=== PATIENT | male | born 1955 | race Caucasian/White ===

== ENCOUNTER 2025-04-26 16:09 | Inpatient (IN) | payer MEDICARE ==
[~2025-04-26] VITALS: Ht 177.8 cm; Wt 91.2 kg
[2025-04-26 18:30] VITALS: BP 106/77; PULSE 61; RESP 18; TEMP 98.1; O2SAT 96
[2025-04-26 18:35] VITALS: BP 118/76; PULSE 66; RESP 18; TEMP 98.1; O2SAT 96
[2025-04-26] MEDS ORDERED: ONDANSETRON 4 MG TABLET PO PRN (19:00)
[2025-04-26] MEDS ORDERED: DEXTROSE 50%-WATER 25 GM/50 ML SYRINGE IVP PRN (19:45)
[2025-04-26 20:44] VITALS: BP 110/77; PULSE 80; RESP 18; TEMP 97.9; O2SAT 95
[2025-04-26] MEDS: -LIDODERM PATCH NOTE- MISC SCH (21:00)
[2025-04-26] MEDS: MELATONIN 5 MG TABLET PO PRN (21:08)
[2025-04-26] MEDS: DOCUSATE SODIUM 250 MG CAPSULE PO SCH (21:08)
[2025-04-26] MEDS: HEPARIN SODIUM,PORCINE 5,000 UNITS/ML VIAL SQ SCH (21:08)
[2025-04-26] MEDS: ETHYL ALCOHOL 62% ANTISEPTIC NASAL SANITIZER 0.6 ML AMPUL NASAL SCH (21:08)
[2025-04-26] MEDS: SENNOSIDES 8.6 MG TABLET PO SCH (21:08)
[2025-04-26 21:51] VITALS: O2SAT 95
[2025-04-27 00:21] LABS: GLUCOMETER DEV NAME(LOC) 2WR.1D; GLUCOSE,POINT OF CARE 132 MG/DL (70-110)
[2025-04-27] MEDS: LANSOPRAZOLE 30 MG CAPSULE PO SCH (06:28)
[2025-04-27] MEDS: HEPARIN SODIUM,PORCINE 5,000 UNITS/ML VIAL SQ SCH (06:29)
[2025-04-27 06:36] LABS: GLUCOMETER DEV NAME(LOC) 2WR.2C; GLUCOSE,POINT OF CARE 141 MG/DL (70-110)
[2025-04-27 07:07] LABS: PLATELET COUNT (AUTO) 378 K/uL (150-450); RED BLOOD CELL COUNT(AUTO) 4.40 MIL/uL (4.50-5.90); RED CELL DISTRIBUTION WIDTH 13.7 % (11.5-14.5); WHITE BLOOD COUNT (AUTO) 14.5 K/uL (4.5-11.0)
[2025-04-27 07:31] LABS: ASPARTATE AMINOTRANSFERASE 17 U/L (15-37); CALCIUM, TOTAL 8.7 mg/dL (8.8-10.5); CREATININE 0.77 mg/dL (0.60-1.30); GLOMERULAR FILTR. RATE CALC > 60 mL/min (>60); GLUCOSE,RANDOM 131 mg/dL (70-110); SODIUM SERUM 134 mmol/L (136-145); TOTAL PROTEIN, SERUM 7.1 g/dL (6.4-8.2); UREA NITROGEN, BLOOD 22 mg/dL (7-18)
[2025-04-27 08:00] VITALS: BP 109/79; PULSE 67; RESP 18; TEMP 97.8; O2SAT 97
[2025-04-27] MEDS: LIDOCAINE 5% TRANSDERMAL PATCH TD SCH (08:32)
[2025-04-27] MEDS: BENZONATATE 100 MG CAPSULE PO PRN (08:32)
[2025-04-27] MEDS: INSULIN LISPRO 100 UNITS/ML SQ PRN (08:35)
[2025-04-27 11:58] VITALS: PULSE 68; RESP 18; O2SAT 95
[2025-04-27 12:56] LABS: GLUCOMETER DEV NAME(LOC) 2WR.2C; GLUCOSE,POINT OF CARE 136 MG/DL (70-110)
[2025-04-27 17:35] LABS: GLUCOMETER DEV NAME(LOC) 2WR.2C; GLUCOSE,POINT OF CARE 128 MG/DL (70-110)
[2025-04-27 20:00] VITALS: BP 110/81; PULSE 75; RESP 18; TEMP 98.2; O2SAT 96
[2025-04-27 22:15] LABS: GLUCOMETER DEV NAME(LOC) 2WR.2C; GLUCOSE,POINT OF CARE 157 MG/DL (70-110)
[2025-04-28 06:51] LABS: GLUCOMETER DEV NAME(LOC) 2WR.2C; GLUCOSE,POINT OF CARE 150 MG/DL (70-110)
[2025-04-28 08:00] VITALS: BP 112/72; PULSE 67; RESP 18; TEMP 97.8; O2SAT 98
[2025-04-28 12:50] LABS: GLUCOMETER DEV NAME(LOC) 2WR.2C; GLUCOSE,POINT OF CARE 132 MG/DL (70-110)
[2025-04-28 17:11] LABS: GLUCOMETER DEV NAME(LOC) 2WR.2C; GLUCOSE,POINT OF CARE 115 MG/DL (70-110)
[2025-04-28 20:00] VITALS: BP 102/81; PULSE 74; RESP 18; TEMP 98.8; O2SAT 97
[2025-04-28 21:10] LABS: GLUCOMETER DEV NAME(LOC) 2WR.2C; GLUCOSE,POINT OF CARE 156 MG/DL (70-110)
[2025-04-28] MEDS: SENNOSIDES 8.6 MG TABLET PO SCH (21:46)
[2025-04-29 06:41] LABS: GLUCOMETER DEV NAME(LOC) 2WR.1D; GLUCOSE,POINT OF CARE 124 MG/DL (70-110)
[2025-04-29 08:00] VITALS: BP 104/79; PULSE 78; RESP 17; TEMP 98.2; O2SAT 95
[2025-04-29 11:51] LABS: GLUCOMETER DEV NAME(LOC) 2WR.1D; GLUCOSE,POINT OF CARE 141 MG/DL (70-110)
[2025-04-29 17:10] LABS: GLUCOMETER DEV NAME(LOC) 2WR.1D; GLUCOSE,POINT OF CARE 111 MG/DL (70-110)
[2025-04-29 20:00] VITALS: BP 101/75; PULSE 73; RESP 18; TEMP 97.9; O2SAT 98
[2025-04-29 20:51] LABS: GLUCOMETER DEV NAME(LOC) 2WR.1D; GLUCOSE,POINT OF CARE 132 MG/DL (70-110)
[2025-04-30 06:50] LABS: GLUCOMETER DEV NAME(LOC) 2WR.2C; GLUCOSE,POINT OF CARE 127 MG/DL (70-110)
[2025-04-30 08:09] VITALS: BP 103/78; PULSE 75; RESP 18; TEMP 98.6; O2SAT 98
[2025-04-30 11:56] LABS: GLUCOMETER DEV NAME(LOC) 2WR.2C; GLUCOSE,POINT OF CARE 145 MG/DL (70-110)
[2025-04-30 16:35] LABS: GLUCOMETER DEV NAME(LOC) 2WR.2C; GLUCOSE,POINT OF CARE 143 MG/DL (70-110)
[2025-04-30 19:51] VITALS: BP 113/80; PULSE 74; RESP 18; TEMP 98.1; O2SAT 97
[2025-04-30 22:51] LABS: GLUCOMETER DEV NAME(LOC) 2WR.2C; GLUCOSE,POINT OF CARE 117 MG/DL (70-110)
[2025-05-01 06:57] VITALS: O2SAT 97
[2025-05-01 07:11] LABS: PLATELET COUNT (AUTO) 388 K/uL (150-450); RED BLOOD CELL COUNT(AUTO) 4.68 MIL/uL (4.50-5.90); RED CELL DISTRIBUTION WIDTH 13.9 % (11.5-14.5); WHITE BLOOD COUNT (AUTO) 14.3 K/uL (4.5-11.0)
[2025-05-01 07:30] LABS: CREATININE 1.06 mg/dL (0.60-1.30); GLOMERULAR FILTR. RATE CALC > 60 mL/min (>60); GLUCOSE,RANDOM 124 mg/dL (70-110); SODIUM SERUM 135 mmol/L (136-145); UREA NITROGEN, BLOOD 19 mg/dL (7-18)
[2025-05-01 07:46] LABS: GLUCOMETER DEV NAME(LOC) 2WR.1D; GLUCOSE,POINT OF CARE 126 MG/DL (70-110)
[2025-05-01 07:50] LABS: CALCIUM, TOTAL 9.1 mg/dL (8.8-10.5)
[2025-05-01 08:00] VITALS: BP 98/64; PULSE 80; RESP 18; TEMP 98.2; O2SAT 100
[2025-05-01] MEDS: MECLIZINE HCL 25 MG TABLET PO SCH (12:24)
[2025-05-01 12:56] LABS: GLUCOMETER DEV NAME(LOC) 2WR.1D; GLUCOSE,POINT OF CARE 139 MG/DL (70-110)
[2025-05-01 17:20] LABS: GLUCOMETER DEV NAME(LOC) 2WR.1D; GLUCOSE,POINT OF CARE 115 MG/DL (70-110)
[2025-05-01] MEDS: ACETAMINOPHEN 325 MG TABLET PO PRN (18:53)
[2025-05-01 20:02] VITALS: BP 99/61; PULSE 72; RESP 18; TEMP 98.4; O2SAT 98
[2025-05-01 21:25] LABS: GLUCOMETER DEV NAME(LOC) 2WR.1D; GLUCOSE,POINT OF CARE 131 MG/DL (70-110)
[2025-05-01 22:26] VITALS: O2SAT 98
[2025-05-02 07:10] LABS: GLUCOMETER DEV NAME(LOC) 2WR.2C; GLUCOSE,POINT OF CARE 154 MG/DL (70-110)
[2025-05-02 08:40] VITALS: BP 106/79; PULSE 92; RESP 18; TEMP 98.1; O2SAT 99
[2025-05-02 10:50] VITALS: O2SAT 99
[2025-05-02 12:46] LABS: GLUCOMETER DEV NAME(LOC) 2WR.2C; GLUCOSE,POINT OF CARE 157 MG/DL (70-110)
[2025-05-02 17:01] LABS: GLUCOMETER DEV NAME(LOC) 2WR.2C; GLUCOSE,POINT OF CARE 132 MG/DL (70-110)
[2025-05-02 17:20] VITALS: BP 101/68; PULSE 83; RESP 18; TEMP 99.5; O2SAT 97
[2025-05-02 18:54] VITALS: TEMP 98.6
[2025-05-02 20:00] VITALS: BP 108/77; PULSE 84; RESP 18; TEMP 99.1; O2SAT 96
[2025-05-02 20:46] LABS: GLUCOMETER DEV NAME(LOC) 2WR.2C; GLUCOSE,POINT OF CARE 143 MG/DL (70-110)
[2025-05-02 22:00] VITALS: BP 104/80; PULSE 88; RESP 18; TEMP 98.8; O2SAT 98
[2025-05-03] VITALS (13 sets, daily range): BP systolic 94–120; BP diastolic 71–88; PULSE 61–94; RESP 18; TEMP 98.1–98.9; O2SAT 95–98
[2025-05-03] MEDS: OxyCODONE HCL 5 MG IR TABLET PO PRN (00:04)
[2025-05-03 06:21] LABS: GLUCOMETER DEV NAME(LOC) 2WR.2C; GLUCOSE,POINT OF CARE 142 MG/DL (70-110)
[2025-05-03] MEDS: SODIUM CHLORIDE 0.9% 500 ML IV ONE (09:53)
[2025-05-03 10:24] LABS: PLATELET COUNT (AUTO) 313 K/uL (150-450); RED BLOOD CELL COUNT(AUTO) 4.38 MIL/uL (4.50-5.90); RED CELL DISTRIBUTION WIDTH 14.0 % (11.5-14.5); WHITE BLOOD COUNT (AUTO) 13.8 K/uL (4.5-11.0)
[2025-05-03] MEDS ORDERED: MECLIZINE HCL 25 MG TABLET PO PRN (12:00)
[2025-05-03 12:46] LABS: GLUCOMETER DEV NAME(LOC) 2WR.2C; GLUCOSE,POINT OF CARE 129 MG/DL (70-110)
[2025-05-03 16:55] LABS: GLUCOMETER DEV NAME(LOC) 2WR.1D; GLUCOSE,POINT OF CARE 213 MG/DL (70-110)
[2025-05-03 22:11] LABS: GLUCOMETER DEV NAME(LOC) 2WR.1D; GLUCOSE,POINT OF CARE 151 MG/DL (70-110)
[2025-05-04] VITALS (9 sets, daily range): BP systolic 106–131; BP diastolic 70–89; PULSE 70–97; RESP 8–19; TEMP 97.2–98.8; O2SAT 95–100
[2025-05-04 07:53] LABS: GLUCOMETER DEV NAME(LOC) 2WR.2C; GLUCOSE,POINT OF CARE 138 MG/DL (70-110)
[2025-05-04 10:11] LABS: CALCIUM, TOTAL 8.7 mg/dL (8.8-10.5); CREATININE 1.01 mg/dL (0.60-1.30); GLOMERULAR FILTR. RATE CALC > 60 mL/min (>60); GLUCOSE,RANDOM 162 mg/dL (70-110); SODIUM SERUM 129 mmol/L (136-145); UREA NITROGEN, BLOOD 16 mg/dL (7-18)
[2025-05-04] MEDS: SODIUM CHLORIDE 0.9% 250 ML IV ONE (11:26)
[2025-05-04 11:41] LABS: GLUCOMETER DEV NAME(LOC) 2WR.2C; GLUCOSE,POINT OF CARE 143 MG/DL (70-110)
[2025-05-04 17:45] LABS: GLUCOMETER DEV NAME(LOC) 2WR.2C; GLUCOSE,POINT OF CARE 144 MG/DL (70-110)
[2025-05-05] VITALS (7 sets, daily range): BP systolic 100–124; BP diastolic 76–99; PULSE 76–99; RESP 17–19; TEMP 98.2–98.8; O2SAT 95–100
[2025-05-05 04:01] LABS: GLUCOMETER DEV NAME(LOC) 2WR.2C; GLUCOSE,POINT OF CARE 110 MG/DL (70-110)
[2025-05-05 06:31] LABS: GLUCOMETER DEV NAME(LOC) 2WR.2C; GLUCOSE,POINT OF CARE 129 MG/DL (70-110)
[2025-05-05 08:39] LABS: CALCIUM, TOTAL 8.9 mg/dL (8.8-10.5); CREATININE 0.86 mg/dL (0.60-1.30); GLOMERULAR FILTR. RATE CALC > 60 mL/min (>60); GLUCOSE,RANDOM 142 mg/dL (70-110); SODIUM SERUM 130 mmol/L (136-145); UREA NITROGEN, BLOOD 15 mg/dL (7-18)
[2025-05-05] MEDS: SODIUM CHLORIDE 0.9% 1,000 ML IV ONE (11:18)
[2025-05-05 12:15] LABS: GLUCOMETER DEV NAME(LOC) 2WR.1D; GLUCOSE,POINT OF CARE 140 MG/DL (70-110)
[2025-05-05 17:30] LABS: GLUCOMETER DEV NAME(LOC) 2WR.1D; GLUCOSE,POINT OF CARE 113 MG/DL (70-110)
[2025-05-05] MEDS: 0.9% SODIUM CHLORIDE 10 ML SYRINGE IVP SCH (20:32)
[2025-05-06 01:46] LABS: GLUCOMETER DEV NAME(LOC) 2WR.2C; GLUCOSE,POINT OF CARE 154 MG/DL (70-110)
[2025-05-06 02:13] VITALS: BP 102/79; PULSE 77; RESP 18; TEMP 97.9; O2SAT 95
[2025-05-06] MEDS ORDERED: LIDO-57 TP (03:29)
[2025-05-06] MEDS ORDERED: LANS-78 PO (03:29)
[2025-05-06] MEDS ORDERED: DEXA1 PO (03:29)
[2025-05-06] MEDS ORDERED: DOCU-412 PO (03:29)
[2025-05-06] MEDS ORDERED: SENN-376 PO (03:29)
[2025-05-06 05:48] VITALS: BP 97/78; PULSE 84; RESP 18; TEMP 98.1; O2SAT 96
[2025-05-06 05:55] LABS: CALCIUM, TOTAL 8.8 mg/dL (8.8-10.5); CREATININE 0.87 mg/dL (0.60-1.30); GLOMERULAR FILTR. RATE CALC > 60 mL/min (>60); GLUCOSE,RANDOM 120 mg/dL (70-110); SODIUM SERUM 133 mmol/L (136-145); UREA NITROGEN, BLOOD 14 mg/dL (7-18)
[2025-05-06 06:51] LABS: GLUCOMETER DEV NAME(LOC) 2WR.2C; GLUCOSE,POINT OF CARE 134 MG/DL (70-110)
[2025-05-06 08:02] VITALS: BP 98/66; PULSE 71; RESP 18; TEMP 97.8; O2SAT 100
[2025-05-06 10:14] VITALS: BP 104/84; PULSE 77; RESP 18; TEMP 98.2; O2SAT 98
[2025-05-06 12:50] LABS: GLUCOMETER DEV NAME(LOC) 2WR.2C; GLUCOSE,POINT OF CARE 158 MG/DL (70-110)
[2025-05-06 17:25] LABS: GLUCOMETER DEV NAME(LOC) 2WR.1D; GLUCOSE,POINT OF CARE 115 MG/DL (70-110)
[2025-05-06 20:00] VITALS: BP 109/80; PULSE 92; RESP 18; TEMP 98.2; O2SAT 97
[2025-05-07 05:46] LABS: GLUCOMETER DEV NAME(LOC) 2WR.1D; GLUCOSE,POINT OF CARE 139 MG/DL (70-110)
[2025-05-07 06:55] LABS: GLUCOMETER DEV NAME(LOC) 2WR.2C; GLUCOSE,POINT OF CARE 128 MG/DL (70-110)
[2025-05-07 08:14] VITALS: BP 97/74; PULSE 72; RESP 18; TEMP 97.6; O2SAT 97
[2025-05-07 08:16] VITALS: O2SAT 97
[2025-05-07 12:11] LABS: GLUCOMETER DEV NAME(LOC) 2WR.1D; GLUCOSE,POINT OF CARE 126 MG/DL (70-110)
[2025-05-07 16:56] LABS: GLUCOMETER DEV NAME(LOC) 2WR.2C; GLUCOSE,POINT OF CARE 131 MG/DL (70-110)
[2025-05-07 20:00] VITALS: BP 106/73; PULSE 92; RESP 18; TEMP 99.3; O2SAT 97
[2025-05-08] VITALS (8 sets, daily range): BP systolic 80–106; BP diastolic 63–83; PULSE 68–94; RESP 18; TEMP 97.5–98.1; O2SAT 97–98
[2025-05-08 06:50] LABS: GLUCOMETER DEV NAME(LOC) 2WR.2C; GLUCOSE,POINT OF CARE 135 MG/DL (70-110)
[2025-05-08 06:55] LABS: GLUCOMETER DEV NAME(LOC) 2WR.1D; GLUCOSE,POINT OF CARE 134 MG/DL (70-110)
[2025-05-08 07:36] LABS: CALCIUM, TOTAL 9.1 mg/dL (8.8-10.5); CREATININE 0.98 mg/dL (0.60-1.30); GLOMERULAR FILTR. RATE CALC > 60 mL/min (>60); GLUCOSE,RANDOM 123 mg/dL (70-110); SODIUM SERUM 130 mmol/L (136-145); UREA NITROGEN, BLOOD 11 mg/dL (7-18)
[2025-05-08] MEDS: MIDODRINE HCL 5 MG TABLET PO PRN (11:20)
[2025-05-08 13:06] LABS: GLUCOMETER DEV NAME(LOC) 2WR.1D; GLUCOSE,POINT OF CARE 172 MG/DL (70-110)
[2025-05-08] MEDS ORDERED: DEXA2 PO (15:02)
[2025-05-08] MEDS: MIDODRINE HCL 5 MG TABLET PO SCH (16:37)
[2025-05-08 17:20] LABS: GLUCOMETER DEV NAME(LOC) 2WR.1D; GLUCOSE,POINT OF CARE 110 MG/DL (70-110)
[2025-05-08 21:10] LABS: GLUCOMETER DEV NAME(LOC) 2WR.1D; GLUCOSE,POINT OF CARE 148 MG/DL (70-110)
[2025-05-09 07:15] LABS: GLUCOMETER DEV NAME(LOC) 2WR.2C; GLUCOSE,POINT OF CARE 122 MG/DL (70-110)
[2025-05-09 08:00] VITALS: BP 102/76; PULSE 79; RESP 18; TEMP 98.1; O2SAT 98
[2025-05-09 12:10] LABS: GLUCOMETER DEV NAME(LOC) 2WR.2C; GLUCOSE,POINT OF CARE 136 MG/DL (70-110)
[2025-05-09 16:09] VITALS: BP 113/85; PULSE 87
[2025-05-09 17:31] LABS: GLUCOMETER DEV NAME(LOC) 2WR.2C; GLUCOSE,POINT OF CARE 132 MG/DL (70-110)
[2025-05-09 20:20] VITALS: O2SAT 97
[2025-05-09 20:30] VITALS: BP 101/82; PULSE 95; RESP 18; TEMP 98.2; O2SAT 97
[2025-05-09 20:46] LABS: GLUCOMETER DEV NAME(LOC) 2WR.2C; GLUCOSE,POINT OF CARE 129 MG/DL (70-110)
[2025-05-09] MEDS ORDERED: MIDO5TAB29 PO (21:39)
[2025-05-09] MEDS ORDERED: METF-1211 PO (21:39)
[2025-05-09] MEDS ORDERED: INSU100V SQ (21:56)
[2025-05-10 07:05] LABS: GLUCOMETER DEV NAME(LOC) 2WR.1D; GLUCOSE,POINT OF CARE 116 MG/DL (70-110)
[2025-05-10 08:12] VITALS: BP 104/81; PULSE 86; RESP 19; TEMP 98.1; O2SAT 99
[2025-05-10] MEDS ORDERED: INSU100V SQ (12:17)
[2025-05-10] MEDS ORDERED: LANS-78 PO (12:17)
[2025-05-10] MEDS ORDERED: SENN-374 PO (12:17)
[2025-05-10] MEDS ORDERED: MIDO5TAB29 PO (12:17)
[2025-05-10] MEDS ORDERED: DEXA2 PO (12:17)
[2025-05-10] MEDS ORDERED: METF-1211 PO (12:17)
[2025-05-10] MEDS ORDERED: DOCU-412 PO (12:17)
[2025-05-10 12:50] LABS: GLUCOMETER DEV NAME(LOC) 2WR.2C; GLUCOSE,POINT OF CARE 136 MG/DL (70-110)
[2025-05-10 13:05] VITALS: BP 101/68; PULSE 76
== END 2025-05-10 13:15 | disposition home health service (06) | DRG 56 ==
LOC: 2WR 18:31
PROVIDERS: ADMIT Physical Medicine & Rehabilitation; ATTEND Physical Medicine & Rehabilitation
DX: G81.94 Hemiplegia, unspecified affecting left nondominant side (principal); G93.5 Compression of brain; G93.6 Cerebral edema; E87.1 Hypo-osmolality and hyponatremia; D64.9 Anemia, unspecified; D72.829 Elevated white blood cell count, unspecified; E88.09 Other disorders of plasma-protein metabolism, not elsewhere classified; G31.84 Mild cognitive impairment of uncertain or unknown etiology; R73.03 Prediabetes; T38.0X5A Adverse effect of glucocorticoids and synthetic analogues, initial encounter; Z74.09 Other reduced mobility; R49.0 Dysphonia; R47.1 Dysarthria and anarthria; R06.6 Hiccough; Y92.89 Other specified places as the place of occurrence of the external cause; R13.10 Dysphagia, unspecified; Z80.0 Family history of malignant neoplasm of digestive organs; I95.9 Hypotension, unspecified; R26.89 Other abnormalities of gait and mobility; E86.0 Dehydration
CPT/HCPCS: 70450; 74230; 80048; 80053; 82962; 85025; 87081; 92507; 92526; 92610; 92611; 97110; 97112; 97116; 97163; 97167; 97530; 97535; 99366; G0238; J1644; J7030; J7040; J7050; J8540